=== PATIENT | male | born 1985 | race Caucasian/White ===

== ENCOUNTER 2017-06-18 14:58 | Emergency (ER) | payer BC ==
[~2017-06-18] VITALS: Ht 180.3 cm; Wt 79.5 kg
[2017-06-18 15:08] VITALS: BP 114/79; PULSE 90; RESP 16; TEMP 98.1; O2SAT 97
--- NOTE | 2017-06-18 15:20 | PD ---
HPI Chief Complaint: Laceration/Skin Injury Time Seen by Provider: 15:19 Travel History International Travel<30 days: No Contact w/Intl Traveler<30days: No Traveled to known affect area: No History of Present Illness HPI 32-year-old male here for laceration to his thumb after working with a table saw 30 minutes ago. States he did not irrigate the wound but wrapped and immediately came to the emergency department. Denies loss of sensation, motor. He was able to control the bleeding with pressure and gauze. Patient is taking medication for anxiety but otherwise denies chronic medical issues. PFSH Past Medical History Anxiety: Yes Tetanus Vaccination: < 5 Years Influenza Vaccination: Yes Past Surgical History Surgical History: No Previous Surgery Social History Alcohol Use: Yes (occas. beer) Tobacco Use: No Substance Use: No Allergies-Medications (Allergen,Severity, Reaction): Coded Allergies: No Known Allergies (Unverified , 06/18/17) Reported Meds & Prescriptions Reported Meds & Active Scripts Active Keflex (Cephalexin) 500 Mg Cap 500 Mg PO Q6H 10 Days Reported [depression med] 200 Mg PO DAILY Review of Systems Except as stated in HPI: all other systems reviewed are Neg Physical Exam Narrative GENERAL: Well-developed well-nourished SKIN: Focused skin assessment warm/dry. Right palmar aspect of thumb with a 2- 3 cm laceration approximately 3 mm deep extending from the very distal portion of nail approximately 1 cm from MCP. Bleeding controlled. no visualization of tendons or bone thorough exploration HEAD: Atraumatic. Normocephalic. EYES: Pupils equal and round. No scleral icterus. No injection or drainage. ENT: No nasal bleeding or discharge. NECK: Trachea midline. No JVD. CARDIOVASCULAR: Regular rate and rhythm. No murmur appreciated. RESPIRATORY: No accessory muscle use. Clear to auscultation. Breath sounds equal bilaterally. MUSCULOSKELETAL: No obvious deformities. No clubbing. No cyanosis. No edema. NEUROLOGICAL: Awake and alert. No obvious cranial nerve deficits. Motor grossly within normal limits. Normal speech. Neurovascularly intact PSYCHIATRIC: Appropriate mood and affect; insight and judgment normal. Data Data Last Documented VS Vital Signs Date Time Temp Pulse Resp B/P (MAP) Pulse Ox O2 Delivery O2 Flow Rate FiO2 06/18/17 15:08 98.1 90 16 114/79 (91) 97 Orders Orders Lidocaine 1% Inj (50 Ml) (Xylocaine 1% I (06/18/17 15:30) Ed Discharge Order (06/18/17 16:35) [facility] Medical Decision Making Medical Screen Exam Complete: Yes Emergency Medical Condition: Yes Differential Diagnosis Right thumb laceration versus avulsion versus contusion Narrative Course 32-year-old male with a laceration to the right palmar aspect of the thumb after working on his table saw today. Pt was unable to irrigate the wound after the injury. Patient is right-handed. Physical exam revealed neurovascularly intact with 2 point discrimination. Full range of motion including opposition of thumb. Good capillary refill. Laceration repair 2 layer. Vicryl suture placed the laceration for better approximation and completed with Prolene. I advised patient and that I thoroughly irrigated and inspected for debris and did not see any however it is possible that there is debris in the wound and he should return if signs of infection develop. Advised on wound care. Take all antibiotics as prescribed. Return to the emergency department or primary care for suture removal within 7- 10 days Procedures Procedure Narrative LACERATION LOCATION: Right thumb LENGTH: 3-4 cm NUMBER OF STITCHES/DARYRN: 5 external, 1 internal REPAIR: The area of the laceration was prepped with Betadine and sterilely draped. The laceration was infiltrated with 2 cc 1% lidocaine. The wound was copiously irrigated and explored without evidence of foreign body, tendon injury or neurovascular injury. The wound was closed using 5 5-0 Prolene and 1 6-0 Vicryl. This was a 2 layer repair. A sterile dressing was applied. The patient was advised to keep the dressing clean and dry. Patient tolerated the procedure well. Diagnosis Primary Impression: Laceration of right thumb Qualified Codes: S61.011A - Laceration without foreign body of right thumb without damage to nail, initial encounter Referrals: Hand Surgeon Primary Care Physician Additional Instructions: Keep area clean and dry. If he developed increased redness, swelling, pus return to the emergency department for treatment. Follow-up with a hand surgeon and her primary care physician in 2 days. Scripts Cephalexin (Keflex) 500 Mg Cap 500 MG PO Q6H for Infection for 10 Days, #40 CAP 0 Refills Prov: Rachelle Sultana MD 06/18/17 Disposition: 01 DISCHARGE HOME Condition: Stable Viridiana Georges Jun 18, 2017 15:20
[2017-06-18] MEDS ORDERED: depression med PO (15:26)
[2017-06-18] MEDS ORDERED: LIDOCAINE HCL 1% 50 ML VIAL INFIL ONE (15:30)
[2017-06-18] MEDS ORDERED: CEPH-460 PO (16:33)
== END 2017-06-18 16:54 | disposition home or self-care (01) ==
LOC: PHEFT 14:58
DX: S61.011A Laceration without foreign body of right thumb without damage to nail, initial encounter (principal); W29.8XXA Contact with other powered hand tools and household machinery, initial encounter; Y93.9 Activity, unspecified
CPT/HCPCS: 12042